=== PATIENT | male | born 1950 | race Caucasian/White ===

== ENCOUNTER 2017-02-25 18:35 | Emergency (ER) | payer MEDICARE ==
[~2017-02-25] VITALS: Ht 172.7 cm; Wt 75.0 kg
[2017-02-25 18:37] VITALS: BP 201/93; PULSE 94; RESP 17; TEMP 97.7; O2SAT 96
[2017-02-25] MEDS ORDERED: SODIUM CHLORIDE 0.9% FLUSH 10 ML FLUSH IV FLUSH PRN (19:30)
[2017-02-25] MEDS ORDERED: CLINDAMYCIN 900 MG PREMIX 50 ML IV ONE (19:30)
[2017-02-25 19:49] VITALS: BP 187/91; PULSE 78; RESP 20; TEMP 97.8; O2SAT 93
[2017-02-25 20:09] LABS: AUTOMATED NEUTROPHIL # 4.9 TH/MM3 (1.8-7.7); BASOPHIL # 0.1 TH/MM3 (0-0.2); BASOPHIL % 0.9 % (0.0-2.0); EOSINOPHIL # 0.3 TH/MM3 (0-0.4); EOSINOPHIL % 4.2 % (0.0-4.0); HEMATOCRIT 42.2 % (39.0-51.0); HEMO FLAGS DIFF FINAL; LYMPH % 19.3 % (9.0-44.0); LYMPHOCYTE # 1.4 TH/MM3 (1.0-4.8); MEAN CELL VOLUME 95.4 FL (80.0-100.0); MEAN CORPUSCULAR HGB CONC 33.5 % (32.0-36.0); MONO % 8.5 % (0.0-8.0); NEUT % 67.1 % (16.0-70.0); PLATELET COUNT 201 TH/MM3 (150-450); RED BLOOD COUNT 4.42 MIL/MM3 (4.50-5.90); RED CELL DISTRIBUTION WIDTH 13.5 % (11.6-17.2); WHITE BLOOD COUNT 7.3 TH/MM3 (4.0-11.0)
--- NOTE | 2017-02-25 20:09 | PD ---
HPI Chief Complaint: Skin Problem Time Seen by Provider: 19:14 Travel History International Travel<30 days: No Contact w/Intl Traveler<30days: No Traveled to known affect area: No History of Present Illness HPI 42-year-old male with a reported history of diabetes, no longer on metformin, here for evaluation of bilateral lower extremity edema, bilateral hand edema, possible bilateral lower extremity infection. The patient reports that about 3 weeks ago he cut his left leg on a motorcycle kickstand. He has been tending to the wound with rubbing alcohol and antibiotic ointments. He reports he had significant bilateral leg swelling which has somewhat improved. He has also felt feverish and has had decreased level of energy. No chest pain or dyspnea. No IVDU. PFSH Past Medical History Cardiovascular Problems: Yes (HTN) Diabetes: Yes (type 2) Patient Takes Glucophage: No Hypertension: Yes Immunizations Current: Yes Tetanus Vaccination: < 5 Years Influenza Vaccination: Yes Social History Alcohol Use: Yes (socially) Tobacco Use: Yes Substance Use: No Allergies-Medications (Allergen,Severity, Reaction): Coded Allergies: cefaclor (Verified Allergy, Unknown, 02/25/17) levofloxacin (Verified Allergy, Unknown, 02/25/17) Reported Meds & Prescriptions Reported Meds & Active Scripts Active Tramadol (Tramadol HCl) 50 Mg Tab 50 Mg PO Q6H PRN Clindamycin (Clindamycin HCl) 150 Mg Cap 450 Mg PO Q6H 10 Days Review of Systems Except as stated in HPI: all other systems reviewed are Neg Physical Exam Narrative GENERAL: Well-developed, well-nourished, comfortable, no acute distress. SKIN: Focused skin assessment warm/dry. Left lower extremity with open/ superficial/ulcerative wound on the anterior/medial aspect of the leg with surrounding warmth and erythema as well as dry/scaly skin. There is no crepitus. No red streaks. No purulent drainage. No induration or fluctuance. Right lower extremity with mild erythema with overlying dry/scaly skin, without crepitus, without red streaks, without fluctuance or induration. HEAD: Atraumatic. Normocephalic. EYES: Pupils equal and round. No scleral icterus. No injection or drainage. ENT: Mucous membranes pink and moist. NECK: Trachea midline. No JVD. CARDIOVASCULAR: Regular rate and rhythm. Distal pulses brisk and equal bilaterally. RESPIRATORY: No accessory muscle use. Clear to auscultation. Breath sounds equal bilaterally. GASTROINTESTINAL: Abdomen soft, non-tender, nondistended. MUSCULOSKELETAL: No obvious deformities. No clubbing. No cyanosis. Skin exam as above. Mild bilateral lower extremity edema with mild calf tenderness. All compartments in the lower extremities are supple. NEUROLOGICAL: Awake and alert. No obvious cranial nerve deficits. Motor grossly within normal limits. Normal speech. PSYCHIATRIC: Appropriate mood and affect; insight and judgment normal. Data Data Last Documented VS Vital Signs Date Time Temp Pulse Resp B/P (MAP) Pulse Ox O2 Delivery O2 Flow Rate FiO2 02/25/17 21:46 97.7 74 14 185/88 (120) 98 02/25/17 19:49 Room Air Orders Orders Complete Blood Count With Diff (02/25/17 19:24) Comprehensive Metabolic Panel (02/25/17 19:24) Prothrombin Time / Inr (Pt) (02/25/17 19:24) Act Partial Throm Time (Ptt) (02/25/17 19:24) Iv Access Insert/Monitor (02/25/17 19:24) Ecg Monitoring (02/25/17 19:24) Oximetry (02/25/17 19:24) Sodium Chloride 0.9% Flush (Ns Flush) (02/25/17 19:30) Us Leg Venous Doppler Bilat (02/25/17 ) Clindamycin 900 Mg Premix (Cleocin 900 M (02/25/17 19:30) Ketorolac Inj (Toradol Inj) (02/25/17 20:15) Tramadol (Ultram) (02/25/17 21:15) Ed Discharge Order (02/25/17 21:19) Labs Laboratory Tests Test 02/25/17 19:45 White Blood Count 7.3 TH/MM3 Red Blood Count 4.42 MIL/MM3 Hemoglobin 14.1 GM/DL Hematocrit 42.2 % Mean Corpuscular Volume 95.4 FL Mean Corpuscular Hemoglobin 32.0 PG Mean Corpuscular Hemoglobin Concent 33.5 % Red Cell Distribution Width 13.5 % Platelet Count 201 TH/MM3 Mean Platelet Volume 8.4 FL Neutrophils (%) (Auto) 67.1 % Lymphocytes (%) (Auto) 19.3 % Monocytes (%) (Auto) 8.5 % Eosinophils (%) (Auto) 4.2 % Basophils (%) (Auto) 0.9 % Neutrophils # (Auto) 4.9 TH/MM3 Lymphocytes # (Auto) 1.4 TH/MM3 Monocytes # (Auto) 0.6 TH/MM3 Eosinophils # (Auto) 0.3 TH/MM3 Basophils # (Auto) 0.1 TH/MM3 CBC Comment DIFF FINAL Differential Comment Prothrombin Time 10.8 SEC Prothromb Time International Ratio 1.0 RATIO Activated Partial Thromboplast Time 27.1 SEC Blood Urea Nitrogen 16 MG/DL Creatinine 1.24 MG/DL Random Glucose 167 MG/DL Total Protein 8.4 GM/DL Albumin 3.2 GM/DL Calcium Level 9.2 MG/DL Alkaline Phosphatase 101 U/L Aspartate Amino Transf (AST/SGOT) 31 U/L Alanine Aminotransferase (ALT/SGPT) 22 U/L Total Bilirubin 0.2 MG/DL Sodium Level 138 MEQ/L Potassium Level 4.0 MEQ/L Chloride Level 102 MEQ/L Carbon Dioxide Level 27.3 MEQ/L Anion Gap 9 MEQ/L Estimat Glomerular Filtration Rate 59 ML/MIN [facility] Medical Decision Making Medical Screen Exam Complete: Yes Emergency Medical Condition: Yes Differential Diagnosis Cellulitis, DVT, fluid overload, DKA Narrative Course Vital signs show heart rate 70, blood pressure 187/91, pulse ox 96% on room air , oral temp of 97.8F. CBC: WBC 7.3, hemoglobin 14.1, hematocrit 42.2, platelets 201. CMP: Random glucose 167, otherwise unremarkable. CT abdomen pelvis: CONCLUSION: The study is negative for deep venous thrombosis bilateral lower extremity. Patient was made aware of all findings. He is resting comfortably. He does have some bilateral lower extremity cellulitis with a superficial ulcerative lesion to his left leg that he states occurred 3 weeks ago on a motorcycle kickstand. There is no crepitus on exam. He was given a dose of IV clindamycin and will be discharged home with a prescription for oral clindamycin. He was advised to return to the emergency Department in 2 days for a wound check. He was informed on when to return to the emergency Department sooner. PMD follow-up this week. Patient verbalizes understanding and agreement with plan. Diagnosis Primary Impression: Bilateral lower leg cellulitis Referrals: Primary Care Physician 3 days Additional Instructions: Return to the emergency department in 48 hours for wound check. Take antibiotics as prescribed. Follow-up with your primary care physician this week. Return to the emergency Department sooner for worsening symptoms or any other concerns. Scripts Tramadol (Tramadol) 50 Mg Tab 50 MG PO Q6H Y for PAIN, #15 TAB 0 Refills Prov: Kwesi Echavarria MD 02/25/17 Clindamycin (Clindamycin) 150 Mg Cap 450 MG PO Q6H for Infection for 10 Days, #120 CAP 0 Refills Prov: Kwesi Echavarria MD 02/25/17 Disposition: 01 DISCHARGE HOME Condition: Stable Kwesi Echavarria MD Feb 25, 2017 20:09
[2017-02-25] MEDS ORDERED: KETOROLAC TROMETHAMINE 30 MG/ML (IVP) VIAL IV PUSH ONE (20:15)
[2017-02-25 20:36] LABS: APTT (PATIENT) 27.1 SEC (24.3-30.1); PROTHROMBIN TIME - PATIENT 10.8 SEC (9.8-11.6)
[2017-02-25 20:41] LABS: ALT (GPT) 22 U/L (12-78); ANION GAP 9 MEQ/L (5-15); AST (GOT) 31 U/L (15-37); BICARBONATE 27.3 MEQ/L (21.0-32.0); BLOOD UREA NITROGEN 16 MG/DL (7-18); CHLORIDE 102 MEQ/L (98-107); GLOMERULAR FILTRATION RATE 59 ML/MIN (>89); SODIUM (NA) 138 MEQ/L (136-145)
[2017-02-25 20:42] LABS: ALKALINE PHOSPHATASE 101 U/L (45-117); TOTAL BILIRUBIN ADULT 0.2 MG/DL (0.2-1.0)
--- NOTE | 2017-02-25 20:56 | RADRPT ---
EXAM DATE/TIME: 02/25/2017 20:01 [facility] COMPARISON: No previous studies available for comparison. INDICATIONS : Bilateral leg swelling. MEDICAL HISTORY : Hypertension. SURGICAL HISTORY : None. ENCOUNTER: Initial ACUITY: 3 days PAIN SCORE: 3/10 LOCATION: Bilateral legs. TECHNIQUE: Venous ultrasound of the left and right leg was performed from the inguinal ligament to the proximal calf. Real-time, color Doppler and spectral tracing, compression and augmentation techniques were us ed. FINDINGS: RIGHT LEG: There is normal compressibility of the deep venous system from the inguinal region to the proximal ca lf. No echogenic clot is seen in the lumen of the common femoral, femoral, popliteal, and posterior tibial veins. There is a normal response of the venous system to proximal and distal augmentation an d respiration. LEFT LEG: There is normal compressibility of the deep venous system from the inguinal region to the proximal ca lf. No echogenic clot is seen in the lumen of the common femoral, femoral, popliteal, and posterior tibial veins. There is a normal response of the venous system to proximal and distal augmentation an d respiration. CONCLUSION: The study is negative for deep venous thrombosis bilateral lower extremity. Antwan Alexis MD on February 25, 2017 at 20:55 Board Certified Radiologist. This report was verified electronically.
[2017-02-25] MEDS ORDERED: traMADol HCL 50 MG TAB PO ONE (21:15)
[2017-02-25] MEDS ORDERED: TRAM50TA PO (21:18)
[2017-02-25] MEDS ORDERED: CLIN150C14 PO (21:18)
[2017-02-25 21:46] VITALS: BP 185/88; TEMP 97.7
== END 2017-02-25 21:45 | disposition home or self-care (01) ==
LOC: NEPD 18:35
DX: L03.116 Cellulitis of left lower limb (principal); L03.115 Cellulitis of right lower limb; E11.9 Type 2 diabetes mellitus without complications; I10 Essential (primary) hypertension; Z72.0 Tobacco use; Z88.8 Allergy status to other drugs, medicaments and biological substances; R60.9 Edema, unspecified
CPT/HCPCS: 80053; 85025; 85610; 85730; 93970; 96365; 96375; 99285; J1885